=== PATIENT | male | born 1990 | race Caucasian/White ===

== ENCOUNTER 2019-05-25 00:23 | Emergency (ER) | payer OTHER ==
[~2019-05-25] VITALS: Ht 175.3 cm; Wt 101.2 kg
[2019-05-25 00:34] VITALS: Ht 175.3 cm; Wt 101.2 kg
[2019-05-25 01:46] VITALS: BP 120/78
== END 2019-05-25 00:40 | disposition home or self-care (01) ==
LOC: ED 00:23
DX: S93.601A Unspecified sprain of right foot, initial encounter (principal); X58.XXXA Exposure to other specified factors, initial encounter; Y93.39 Activity, other involving climbing, rappelling and jumping off; Y92.89 Other specified places as the place of occurrence of the external cause; Y99.8 Other external cause status
CPT/HCPCS: Q0092

== ENCOUNTER 2019-08-10 21:31 | Emergency (ER) | payer OTHER ==
[~2019-08-10] VITALS: Ht 175.3 cm; Wt 114.4 kg
[2019-08-10 21:48] VITALS: Ht 175.3 cm; Wt 114.4 kg
[2019-08-10 22:36] VITALS: BP 130/74
== END 2019-08-10 22:36 | disposition home or self-care (01) ==
LOC: ED 21:31
DX: H60.92 Unspecified otitis externa, left ear (principal)
CPT/HCPCS: J1885